=== PATIENT | female | born 1995 | race Caucasian/White ===

== ENCOUNTER 2025-04-05 16:55 | Emergency (ER) | payer OTHER, SELFPAY ==
--- NOTE | 2025-04-05 17:01 | ED.GENMED ---
History of Present Illness
<Dunia Christian PA-C - Last Filed: 04/05/25 22:36>
General
Chief Complaint: Problems
Source: patient
Exam Limitations: none
Time Seen by Provider: 04/05/25 16:57
Nursing documentation reviewed up to this point in time: agreed with
History of Present Illness
History of Present Illness:
Patient is a 29 year old female at an estimated 8 weeks gestation who presents to the emergency department for evaluation of vaginal bleeding. Patient states that she was visiting family for Thanksgiving when she then went to the bathroom and
had a 'gush' of bright red blood about 1 hour ago. Given amount of bleeding that she noticed, they contacted 911 for transportation to the emergency department. On arrival to the ED, she had an additional episode of bleeding in the toilet and
passage of a large clot.
She describes very mild cramping in her lower abdomen. She denies any back pain. She denies any lightheadedness/dizziness or shortness of breath currently. She has felt nauseous throughout the day today which she attributed to normal
and noticed mild lightheadedness over the preceding few days. She has not had any episodes of syncope.
Patient has been experiencing some dark brown spotting over the past few days. She did mention this to her SCHOOL BUS DRIVER/MECHANIC who told her that this was likely 'normal' in early . She had confirmatory blood work a few weeks ago with her SCHOOL BUS DRIVER/MECHANIC at
[facility] however has yet to have ultrasound documentation of .
Past History
<Dunia Christian PA-C - Last Filed: 04/05/25 22:36>
Social History
Tobacco: Smoker
Alcohol: Occasional
Drug: None
Review of Systems
<Dunia Christian PA-C - Last Filed: 04/05/25 22:36>
Review of Systems
Allergies reviewed?: Yes
All Other Systems: ROS reviewed and negative except as documented in HPI and ROS
Phy Exam
<Dunia Christian PA-C - Last Filed: 04/05/25 22:36>
Physical Exam
Physical Exam:
Vitals: Patient's vital signs are stable. Afebrile
General: Patient is tearful
Skin: Warm and dry, no rashes or lesions
Head: Normocephalic, atraumatic
Eyes: Sclera nonicteric.
Throat: Protecting airway
Neck: Normal ROM, no cervical spine tenderness, no meningismus
Cardiac: Regular rate and rhythm, no murmurs.
Pulm: Normal respiratory effort. Lungs clear bilaterally
Abdomen: Abdomen soft. Mild tenderness in right pelvic region. No rebound or guarding.
Pelvic: External genitalia normal appearing without lesions, ulcerations, or adenopathy. Moderate amount of bright red blood in vaginal vault with small clot noted at cervical os.
Extremities: No evidence of cyanosis or edema
Neuro: AAOx3. Grossly intact
Psychiatric: Normal affect.
Course
<Dunia Christian PA-C - Last Filed: 04/05/25 22:36>
Orders/Labs/Results
Orders:
Orders
04/05/25 17:00
0.9% Sodium Chloride 1000 ml [Nss] 1,000 ml IV BOLUS
1st Trimester US [US 1st Trimester] Urgent
Comment:
Reason For Exam: vaginal bleeding in early
04/05/25 17:01
Test Result ONCE
04/05/25 17:29
Type And Crossmatch [Type+Screen] Urgent
Beta HCG Quantitative Urgent
Comment: ADDON
Complete Blood Count/With Diff Urgent
Comprehensive Metabolic Panel Urgent
HCG, Serum Qualitative Screen Urgent
04/05/25 17:44
Add On- LAB Urgent
Tests Added?: hcg, quantitative
04/05/25 18:13
Morphine Sulfate 4 mg IV NOW STA
Abnormal Lab Results
04/05/25
17:29
Abs Immat Gran (auto) 0.1 H 10^3/uL
(0-0.05)
Absolute Monos (auto) 0.9 H 10^3/uL
(0.1-0.6)
Sodium 133 L mmol/L
(135-145)
04/05/25 17:29
04/05/25 17:29
Vital Signs
Initial and Last Documented VS:
Initial Vital Signs
Temp Pulse Resp BP Pulse Ox
97.6 F 71 18 122/85 99
04/05/25 17:09 04/05/25 17:09 04/05/25 17:09 04/05/25 17:09 04/05/25 17:09
Last Documented Vital Signs
Temp Pulse Resp BP Pulse Ox
98.1 F 70 14 109/65 99
04/05/25 20:44 04/05/25 20:44 04/05/25 20:44 04/05/25 19:04 04/05/25 20:44
Information
Weeks gestation: Weeks: (8)
Location: Location: (Intrauterine)
<Kingston Koo PA-C - Last Filed: 04/05/25 20:28>
Orders/Labs/Results
Orders:
Orders
04/05/25 17:00
0.9% Sodium Chloride 1000 ml [Nss] 1,000 ml IV BOLUS
1st Trimester US [US 1st Trimester] Urgent
Comment:
Reason For Exam: vaginal bleeding in early
04/05/25 17:01
Test Result ONCE
04/05/25 17:29
Type And Crossmatch [Type+Screen] Urgent
Beta HCG Quantitative Urgent
Comment: ADDON
Complete Blood Count/With Diff Urgent
Comprehensive Metabolic Panel Urgent
HCG, Serum Qualitative Screen Urgent
04/05/25 17:44
Add On- LAB Urgent
Tests Added?: hcg, quantitative
04/05/25 18:13
Morphine Sulfate 4 mg IV NOW STA
Abnormal Lab Results
04/05/25
17:29
Abs Immat Gran (auto) 0.1 H 10^3/uL
(0-0.05)
Absolute Monos (auto) 0.9 H 10^3/uL
(0.1-0.6)
Sodium 133 L mmol/L
(135-145)
04/05/25 17:29
04/05/25 17:29
Vital Signs
Initial and Last Documented VS:
Initial Vital Signs
Temp Pulse Resp BP Pulse Ox
97.6 F 71 18 122/85 99
04/05/25 17:09 04/05/25 17:09 04/05/25 17:09 04/05/25 17:09 04/05/25 17:09
Last Documented Vital Signs
Temp Pulse Resp BP Pulse Ox
98.1 F 70 14 109/65 99
04/05/25 20:44 04/05/25 20:44 04/05/25 20:44 04/05/25 19:04 04/05/25 20:44
<Dunia Christian PA-C - Last Filed: 04/05/25 22:36>
MDM/Problems Addressed
Differential Diagnosis Includes:
Not limited to: Threatened , missed , ectopic , subchorionic hematoma, etc.
MDM/Problems Addressed:
29-year-old at estimated 8 weeks gestation presenting with vaginal bleeding and lower abdominal cramping. Patient had blood work confirming a few weeks ago however no ultrasound confirmation thus far. Patient is visiting currently
and follows with SCHOOL BUS DRIVER/MECHANIC at [facility]. Patient had an episode of bright red bleeding with large clot in bathroom on arrival to ED. She is hemodynamically stable. Abdomen soft with mild tenderness across lower abdomen/pelvic
region. Pelvic exam reveals bright red blood in vault with small clot at cervical os.
Differential includes threatened , missed , ectopic , subchorionic hematoma, etc.
ED plan: Labs, hCG, type and screen, ultrasound
Update 6 PM: Patient appears to be in more discomfort and describes a cramping pain in her lower abdomen. Will give dose of morphine pending ultrasound. Her lab work is unremarkable including a normal hemoglobin of 12.9. hCG is positive,
quantitative pending.
Update 7 PM: Ultrasound reveals intrauterine gestational sac and embryo with heart rate of 174bpm and right side of uterus with small subchorionic hemorrhage. Also noted additional atypical shaped likely gestational sac in left side of uterus
without evidence of embryo or heartbeat suggesting likely miscarriage of twin . Discussed findings with patient at length. She has remained hemodynamically stable and pain much better controlled. She states bleeding has subsided somewhat.
Plan for discharge home with close follow-up outpatient with her SCHOOL [employer] DRIVER/MECHANIC for close monitoring of hCG levels and repeat ultrasound. Very strict return precautions discussed.
Chronic conditions affecting care:
N/A
Acute Exacerbation and/or Progression of Chronic Illness:
N/A
<Dunia Christian PA-C - Last Filed: 04/05/25 22:36>
*Radiology
Radiology exam reviewed: radiology read reviewed
*Pulse Oximetry
SaO2: 100
Patient hypoxic: no
*EKG
Interpreted by ED Provider?: NA
*Senior Account Clerk Interpretation
Rate: Senior Account Clerk- N/A
*Critical Care Note
Total Time (30-74mins, 75-104mins- exclusive of procedures): Not Applicable
<Dunia Christian PA-C - Last Filed: 04/05/25 22:36>
Patient Management
Discussion with other providers: Registered Nurse Behavioral Health (Case discussed w/ OBGYN)
<Kingston Koo PA-C - Last Filed: 04/05/25 20:28>
Update Note
Update Note:
Assumed care of patient pending signout and pending blood type and screen. She is O+. No indication for RhoGAM. Stable for discharge
ED Attending Note
<Dunia Christian PA-C - Last Filed: 04/05/25 22:36>
-
Portions of this chart may have been created with voice recognition software.� Occasional wrong word or��sound alike� substitutions may have occurred due to the inherent limitations of voice recognition software.
Discharge Plan
Departure
Patient Disposition: Home (Routine Discharge)
Date of Disposition: 04/05/25
Time of Disposition: 20:28
Patient with high blood pressure during this ER visit?: No
Condition: Good
Discharge Problem:
Threatened miscarriage
Instructions: Miscarriage (DC)
Prescriptions:
No Action
No Current Medications
amoxicillin 500 MG capsule
500 mg PO BID Qty: 20 0RF
Referrals:
DEBORAH LESTER [Other]
Activity Restrictions/Additional Instructions:
RETURN TO THE EMERGENCY DEPARTMENT WITH ANY PERSISTENT HEAVY VAGINAL BLEEDING, PASSING LARGE CLOTS, LIGHTHEADEDNESS/DIZZINESS, EPISODES OF SYNCOPE, SHORTNESS OF BREATH, SEVERE ABDOMINAL PAIN, OR ANY OTHER CONCERNS
- As discussed�your ultrasound showed an intrauterine with a heart rate of 174 as well as a small subchorionic hemorrhage. There was also noted to be a atypically shaped gestational sac in the left side of your uterus without evidence of
embryo or heartbeat. This is suggestive of a possible twin miscarriage.
-Your hemoglobin was stable.
- You can take Tylenol as needed for discomfort. Please adhere to pelvic rest until cleared by SCHOOL BUS DRIVER/MECHANIC.
- It is very important that you contact your SCHOOL BUS DRIVER/MECHANIC tomorrow for very close outpatient follow-up including repeat lab work and ultrasound.
Monitor your symptoms closely and return to the emergency department with any acute worsening/new symptoms or any other concerns
Interventions
Interventions:
*Risk Screen - Suicide Last Done: 04/05/25 18:00
*General Assessment Last Done: 04/05/25 18:00
*Neglect/Abuse Screening Last Done: 04/05/25 18:00
*ED- Fall Risk Assessment Last Done: 04/05/25 18:00
*Nursing Disposition Last Done: 04/05/25 20:44
ED-Female Genitourinary Assessment Last Done: 04/05/25 19:00
Discharge Date and Time
Discharge Date/Time: 04/05/25 20:52
Print Language: GEORGIAN
[2025-04-05 17:09] VITALS: BP 122/85
[2025-04-05] MEDS: NSS 1000 IV (17:31)
[2025-04-05 17:43] LABS: Hematocrit 37.9 % (37.0-47.0); Hemoglobin 12.9 g/dL (12.0-16.0); Mean Corp Hgb Conc. 34.0 g/dL (33.0-37.0); Mean Corpuscular Volume 84.8 fL (81.0-99.0); Nucleated Red Blood Cells % 0 %; Platelet Count 212 10^3/uL (130-400); Red Cell Dist. Width 12.6 % (11.5-14.5)
[2025-04-05 18:03] LABS: HCG, Serum Qualitative Screen Positive
[2025-04-05 18:09] LABS: ALT (SGPT) 14 U/L (0-35); AST (SGOT) 21 U/L (14-36); Albumin 4.2 g/dl (3.5-5.0); Alkaline Phosphatase 42 U/L (38-126); Blood Urea Nitrogen 9 mg/dl (7-17); Calcium 9.4 mg/dl (8.4-10.2); Carbon Dioxide 24 mmol/L (22-30); Chloride 104 mmol/L (98-107); Glucose 88 mg/dl (70-99); Potassium 3.7 mmol/L (3.5-5.1); Sodium 133 mmol/L (135-145); Total Protein 7.3 g/dl (6.3-8.2); eGFR > 60.00
[2025-04-05] MEDS: MORPHINE SULFATE 4 MG IV (18:36)
[2025-04-05 18:44] VITALS: BP 117/77
[2025-04-05 19:04] VITALS: BP 109/65
== END 2025-04-05 20:52 | disposition home or self-care (01) ==
LOC: EMR 16:55
PROVIDERS: Physician Assistant; EMERGENCY PHYSICIAN Emergency Medicine
DX: O20.0 Threatened abortion (principal); O99.331 Smoking (tobacco) complicating pregnancy, first trimester; F17.200 Nicotine dependence, unspecified, uncomplicated; Z3A.08 8 weeks gestation of pregnancy
CPT/HCPCS: 99284; 96374; 96361; 76801; 80053; 84702; 84703; 85025; 86850; 86900; 86901